=== PATIENT | female | born 1990 | race Caucasian/White ===

== ENCOUNTER 2023-01-03 13:38 | Emergency (ER) | payer OTHER ==
[2023-01-03 14:01] VITALS: BP 151/74; O2SAT 98
--- NOTE | 2023-01-03 15:00 | XRAY Report ---
PROCEDURE: Ankle 3 View RT INDICATIONS: Trauma TECHNIQUE: 3 views of the ankle were acquired. COMPARISON: X-ray foot 01/03/2023 FINDINGS: Bones: No fractures or dislocations. Ankle mortise is normally aligned. No suspicious bony lesions . Soft tissues: Mild ankle edema. Achilles tendon appears normal. IMPRESSION: No visualized acute fracture or dislocation. However, occult injury cannot be excluded. Recommend ghanshyam rt interval imaging follow-up in 7-10 days as clinically indicated for additional evaluation. Reviewed by: Petty Ruiz MD on 01/03/2023 2:59 PM PST Approved by: Petty Ruiz MD on 01/03/2023 2:59 PM PST Station ID: [id number]
--- NOTE | 2023-01-03 15:01 | XRAY Report ---
PROCEDURE: Foot 3 View RT INDICATIONS: Trauma TECHNIQUE: 3 views of the foot were acquired. COMPARISON: X-ray ankle 01/03/2023 FINDINGS: Bones: No fractures or dislocations. No suspicious bony lesions. Soft tissues: No suspicious soft tissue calcifications or masses. IMPRESSION: No visualized acute fracture or dislocation. However, occult injury cannot be excluded. Recommend ghanshyam rt interval imaging follow-up in 7-10 days as clinically indicated for additional evaluation. Reviewed by: Petty Ruiz MD on 01/03/2023 2:59 PM PST Approved by: Petty Ruiz MD on 01/03/2023 2:59 PM PST Station ID: [id number]
--- NOTE | 2023-01-03 15:26 | ED Physician Documentation ---
History of Present Illness - Stated complaint Stated Complaint: RT FOOT PX - Chief complaint Chief Complaint: Trauma Ext - Additonal information Additional information: She was carrying a box at work and tripped going down the stairs falling and caused an inversion injury to her right ankle. Injury occurred yesterday. Unable to bear weight since. Yesterday she reports that she tried some Tylenol and Motrin which did not relieve the pain therefore she drank some whiskey. no hx of previous injury Review of Systems Musculoskeletal: reports: Joint pain, Extremity swelling PD PAST MEDICAL HISTORY - Past Medical History Past Medical History: Yes Cardiovascular: None Respiratory: None Neuro: None Endocrine/Autoimmune: None GI: None [employer]CR[employer]ARY: Other : Chronic bladder infection HEENT: None Psych: None Musculoskeletal: None Derm: None - Past Surgical History Past Surgical History: Yes - Present Medications Home Medications: Ambulatory Orders Medication Instructions Recorded Confirmed Acetaminophen [Tylenol] 500 mg PO Q4-6H PRN #30 tablet 01/03/23 Ibuprofen [Motrin] 600 mg PO Q6H PRN #30 tab 01/03/23 - Allergies Allergies/Adverse Reactions: Allergies Allergy/AdvReac Type Severity Reaction Status Date / Time cefixime [From Suprax] Allergy Unknown Verified 01/03/23 13:49 cephalexin [From Keflex] Allergy Rash Verified 01/03/23 13:49 sulfamethoxazole Allergy Rash Verified 01/03/23 13:49 [From Bactrim] trimethoprim [From Bactrim] Allergy Rash Verified 01/03/23 13:49 - Social History Does the pt smoke?: Yes Smoking Status: Current every day smoker Does the pt drink ETOH?: Yes Does the pt have substance abuse?: Yes Substance Use and Type: Marijuana - Immunizations Immunizations are current?: No Immunizations: TDAP >10years/unknown PD ED PE NORMAL - General General: Alert and oriented X 3, No acute distress - Extremities Extremities: Other (Mild swelling and ecchymosis on the dorsum of the right foot just distal to the lateral malleolus. Reduced range of motion secondary to tati n. 2+ DP pulse. Neurovascular intact. No pain in the posterior Achilles or medial malleolus. No pain at the base of the fifth metatarsal. Unwilling to bear) Results - Vitals Vitals: Vital Signs - 24 hr 01/03/23 13:49 Temperature 36.9 C Heart Rate 101 H Respiratory 18 Rate Blood Pressure 151/74 H O2 Saturation 98 - Rads (name of study) right foot/ankle xray Relevant Findings:: Final report received (No acute fracture or osseous lesion or dislocation.) PD Medical Decision Making - ED course Complexity details: reviewed results, re-evaluated patient, d/w patient ED course: 32-year-old female presents for evaluation of acute right foot and ankle injury after falling on a step while at work yesterday. She suffered an inversion injury. She does have some moderate swelling and ecchymosis on the dorsum of the right foot. X-ray of both foot and ankles interpreted by the radiologist was negative for acute fracture or dislocation. I elicited no pain at the base of the fifth metatarsal. She is otherwise neurovascularly intact. Clinically I suspect moderate sprain though an occult fracture remains in the differential. Patient was placed in an air splint. She reports she has crutches at home and denied those today. She is advised follow-up with a labor and industries provider in about 5 days for reevaluation. 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 I prescribed Motrin and Tylenol for analgesia but declined narcotics today. [id number] completed at the bedside Departure - Departure Disposition: 01 Home, Self Care Clinical Impression: Right foot sprain Qualifiers: Encounter type: initial encounter Qualified Code(s): S93.601A - Unspecified sprain of right foot, initial encounter Contusion of right foot Qualifiers: Encounter type: initial encounter Qualified Code(s): S90.31XA - Contusion of right foot, initial encounter Right ankle sprain Qualifiers: Encounter type: initial encounter Involved ligament of ankle: unspecified ligament Qualified Code(s): S93.401A - Sprain of unspecified ligament of right ankle, initial encounter Condition: Stable Record reviewed to determine appropriate education?: Yes Instructions: ED Sprain Ankle Prescriptions: Ibuprofen [Motrin] 600 mg PO Q6H PRN #30 tab PRN Reason: Pain Acetaminophen [Tylenol] 500 mg PO Q4-6H PRN #30 tablet PRN Reason: Pain 5-7 Comments: At work you tripped on a stair and inverted your right ankle. You have a moderate amount of swelling and bruising to the foot and ankle. The x-ray of both your foot and ankle today did not show an obvious fracture. It is most likely that you have a significant sprain and contusion. Most of these will get better over the course of 7 to 10 days. In general I would like you to wear the air splint when out of bed. Please take the Tylenol and ibuprofen as prescribed for discomfort. I would encourage you to follow-up with one of the local walk-in clinics in about 5 days time for reevaluation. If symptoms not markedly better they may be able to prescribe physical therapy or other evaluation or referral to an orthopedist.
== END 2023-01-03 15:49 | disposition home or self-care (01) ==
LOC: ED 13:38
DX: S93.601A Unspecified sprain of right foot, initial encounter (principal); S93.401A Sprain of unspecified ligament of right ankle, initial encounter; S90.31XA Contusion of right foot, initial encounter; W10.9XXA Fall (on) (from) unspecified stairs and steps, initial encounter; Y93.01 Activity, walking, marching and hiking; Y99.0 Civilian activity done for income or pay; F17.200 Nicotine dependence, unspecified, uncomplicated
CPT/HCPCS: 1040M; 99283

== ENCOUNTER 2023-01-10 12:17 | Outpatient (CLI) | payer OTHER ==
--- NOTE | 2023-01-10 13:18 | XRAY Report ---
PROCEDURE: Ankle 3 View RT INDICATIONS: RIGHT ANKLE AND FOOT PAIN TECHNIQUE: 3 views of the ankle were acquired. COMPARISON: None. FINDINGS: Bones: No fractures or dislocations. Ankle mortise is normally aligned. No suspicious bony lesions . Soft tissues: No tibiotalar joint effusion. Achilles tendon appears normal. IMPRESSION: No acute bony abnormality. If there remains a high clinical concern for fracture, consider cross-sect ional imaging now. If pain persists, consider repeat x-ray in 10-14 days or cross-sectional imaging. Reviewed by: Guy Adams MD on 01/10/2023 1:17 PM PST Approved by: Guy Adams MD on 01/10/2023 1:17 PM PST Station ID: [id number]
--- NOTE | 2023-01-10 13:19 | XRAY Report ---
PROCEDURE: Foot 3 View RT INDICATIONS: RIGHT ANKLE AND FOOT PAIN TECHNIQUE: 3 views of the foot were acquired. COMPARISON: 01/03/2023 FINDINGS: Bones: No fractures or dislocations. No suspicious bony lesions. Soft tissues: No suspicious soft tissue calcifications or masses. IMPRESSION: No acute bony abnormality. Reviewed by: Guy Adams MD on 01/10/2023 1:18 PM PST Approved by: Guy Adams MD on 01/10/2023 1:18 PM [facility] Station ID: [id number]
== END 2023-01-10 23:59 | disposition home or self-care (01) ==
LOC: DI.N 12:17
PROVIDERS: ATTEND Registered Nurse
DX: M25.571 Pain in right ankle and joints of right foot (principal)

== ENCOUNTER 2023-01-18 07:33 | Outpatient (CLI) | payer OTHER ==
--- NOTE | 2023-01-18 11:02 | XRAY Report ---
PROCEDURE: Ankle 3 View RT INDICATIONS: RIGHT ANKLE PAIN TECHNIQUE: 3 views of the ankle were acquired. COMPARISON: None. FINDINGS: Bones: 1 mm curvilinear calcification projecting over the talonavicular joint. Soft tissues: No tibiotalar joint effusion. Achilles tendon appears normal. IMPRESSION: 1 mm curvilinear calcification projecting over the talonavicular joint, suggestive of a remote avulsi on fracture in the absence of an ankle joint effusion. Correlate with point tenderness. Reviewed by: Mohit Rodriguez on 01/18/2023 11:01 AM PST Approved by: Mohit Rodriguez on 01/18/2023 11:01 AM PST Station ID: [id number]
--- NOTE | 2023-01-18 11:05 | XRAY Report ---
PROCEDURE: Foot 3 View RT INDICATIONS: RIGHT FOOT PAIN TECHNIQUE: 3 views of the foot were acquired. COMPARISON: None. FINDINGS: Bones: No fractures or dislocations. No suspicious bony lesions. Soft tissues: No suspicious soft tissue calcifications or masses. IMPRESSION: No acute bony abnormality. Please see dedicated ankle series regarding a possible avulsion fracture. Reviewed by: Mohit Rodriguez on 01/18/2023 11:03 AM [facility] Approved by: Mohit Rodriguez on 01/18/2023 11:03 AM [facility] Station ID: [id number]
== END 2023-01-18 23:59 | disposition home or self-care (01) ==
LOC: DI.WOS 07:33
PROVIDERS: ATTEND Physician Assistant Surgical
DX: S93.491A Sprain of other ligament of right ankle, initial encounter (principal); M79.671 Pain in right foot; M25.871 Other specified joint disorders, right ankle and foot